=== PATIENT | female | born 1990 | race Caucasian/White ===

== ENCOUNTER 2018-06-18 11:13 | Emergency (ER) | payer BC ==
[2018-06-18 12:49] VITALS: BP 127/86
--- NOTE | 2018-06-18 13:28 | UC ---
Throat Pain/Nasal Sriram HPI - HPI Summary HPI Summary: Ill with cold symptoms, head congestion, sinus pressure over the past 3 weeks. - History of Current Complaint Chief Complaint: UCRespiratory Stated Complaint: ST,FEVER Time Seen by Provider: 06/18/18 12:53 Hx Obtained From: Patient Hx Last Menstrual Period: "last week" ?: No Onset/Duration: Gradual Onset Severity: Moderate Pain Intensity: 4 Cough: None Associated Signs & Symptoms: Positive: Sinus Discomfort, Nasal Discharge - Epiglottits Risk Factors Epiglottis Risk Factors: Negative - Allergies/Home Medications Allergies/Adverse Reactions: Allergies Allergy/AdvReac Type Severity Reaction Status Date / Time lactose AdvReac Diarrhea Verified 06/18/18 12:43 Home Medications: Home Medications Baclofen TAB* [Lioresal TAB*] 10 mg PO DAILY 06/18/18 [History Confirmed ] Omeprazole CAP (NF) [Prilosec CAP* 20 MG] 40 mg PO BID 06/18/18 [History Confirmed 06/18/18] PMH/Surg Hx/FS Hx/Imm Hx Previously Healthy: Yes - Surgical History Surgical History: Yes Surgery Procedure, Year, and Place: Tonsillectomy, Sinus, Orthopedic - Social History Alcohol Use: Rare Substance Use Type: Marijuana Substance Use Comment - Amount & Last Used: rarely Smoking Status (MU): Current Some Day Smoker Review of Systems All Other Systems Reviewed And Are Negative: Yes Constitutional: Positive: Negative Skin: Positive: Negative Eyes: Positive: Negative ENT: Positive: Sore Throat, Ear Ache, Nasal Discharge, Sinus Congestion, Sinus Pain/Tenderness Respiratory: Positive: Negative Cardiovascular: Positive: Negative Gastrointestinal: Positive: Abdominal Pain - Patient has a history of GERD and states she always has some form of abdominal pain and today's discomfort is no worse than normal. Genitourinary: Positive: Negative Motor: Positive: Negative Neurovascular: Positive: Negative Musculoskeletal: Positive: Negative Neurological: Positive: Negative Psychological: Positive: Negative Is Patient Immunocompromised?: No Physical Exam Triage Information Reviewed: Yes Appearance: Well-Appearing, No Pain Distress, Well-Nourished Vital Signs: Initial Vital Signs Temp 98.2 F 06/18/18 12:40 Pulse 98 06/18/18 12:40 Resp 18 06/18/18 12:40 BP 127/86 06/18/18 12:40 Pulse Ox 100 06/18/18 12:40 Vital Signs Reviewed: Yes Eye Exam: Normal ENT: Positive: Pharynx normal, Nasal congestion, Nasal drainage, TMs normal, Sinus tenderness, Uvula midline, Other - Maxillary sinuses tender on palpation bilaterally.. Negative: Pharyngeal erythema, Tonsillar swelling, Tonsillar exudate, Trismus, Muffled voice, Hoarse voice Neck exam: Normal Neck: Positive: Supple, Nontender, No Lymphadenopathy Respiratory Exam: Normal Cardiovascular Exam: Normal Abdominal Exam: Normal Bowel Sounds: Positive: Present Musculoskeletal Exam: Normal Neurological Exam: Normal Psychological Exam: Normal Skin Exam: Normal Throat Pain/Nasal Course/Dx - Course Course Of Treatment: Patient has been comfortable here. I believe her symptoms are consistent with a sinus infection and we'll treat her as such. She is to follow-up with her primary care provider if no improvement in 3-4 days. - Differential Dx/Diagnosis Differential Diagnosis/HQI/PQRI: Sinusitis Provider Diagnosis: Sinusitis Discharge - Sign-Out/Discharge Documenting (check all that apply): Patient Departure All imaging exams completed and their final reports reviewed: No Studies - Discharge Plan Condition: Good Disposition: HOME Prescriptions: Amoxicillin PO (*) [Amoxicillin 875 MG (*)] 875 mg PO BID 10 Days #20 tab Patient Education Materials: Sinusitis (ED) Forms: *Work Release Referrals: No Primary Care Phys,NOPCP [Primary Care Provider] - Additional Instructions: Increase fluids, Tylenol every 4 hours and may alternate with Advil every 6 or 8 hours for pain. Once she fully her prescription today take that as her morning dose. Follow-up with your primary care provider if no improvement in 3 or 4 days.Please call [facility] at [phone] to get help establishing care with a primary care provider. - Billing Disposition and Condition Condition: GOOD Disposition: Home - Attestation Statements Provider Attestation: I was available for consult. This patient was seen by the LIBBY. The patient was not presented to, seen by, or examined by me. -Elijah
== END 2018-06-18 13:41 | disposition home or self-care (01) ==
LOC: UCCORT 11:13
DX: J32.9 Chronic sinusitis, unspecified (principal); J02.9 Acute pharyngitis, unspecified; K21.9 Gastro-esophageal reflux disease without esophagitis; R10.9 Unspecified abdominal pain; F17.200 Nicotine dependence, unspecified, uncomplicated; Z79.899 Other long term (current) drug therapy; Z91.011 Allergy to milk products
CPT/HCPCS: 87651; 99202; G0463